=== PATIENT | female | born 1935 | race Asian ===

== ENCOUNTER 2017-08-26 10:28 | Day surgery (SDC) | payer OTHER ==
[~2017-08-26] VITALS: Ht 147.3 cm; Wt 69.1 kg
[~2017-08-26 10:28] MED LIST: ASPI-1182 PO; DICLOFENAC SODIUM 0.1% 2.5 ML OPHTHALMIC SOLUTION OS ONE; LISI-661 PO; MOXIFLOXACIN HCL 0.5% 3 ML OPHTHALMIC SOLUTION OS ONE; RINGERS SOLUTION,LACTATED 500 ML IV ONE; SIMV-259 PO
[2017-08-26] MEDS ORDERED: HYALURONATE SODIUM 12 MG/ML 0.8 ML SYRINGE IO ONE (10:29)
[2017-08-26] MEDS ORDERED: 0.9% SODIUM CHLORIDE 10 ML VIAL IVP ONE (10:29)
[2017-08-26] MEDS ORDERED: LIDOCAINE HCL/PF 1% 2 ML VIAL IM ONE (10:29)
[2017-08-26] MEDS ORDERED: MIDAZOLAM HCL 2 MG/2 ML VIAL IVP ONE (10:29)
[2017-08-26] MEDS ORDERED: TETRACAINE HCL VISCOUS 0.5% 5 ML OPHTHALMIC SOLUTION OS ONE (10:29)
[2017-08-26] MEDS ORDERED: HYALURONATE SOD/CHONDROITIN SOD 0.5 ML VIAL IO ONE (10:29)
[2017-08-26] MEDS ORDERED: DEXAMETHASONE SOD PHOS 4 MG/ML VIAL IVP ONE (10:29)
[2017-08-26] MEDS ORDERED: POVIDONE-IODINE 10% 15 ML SOLUTION UD TP ONE (10:29)
[2017-08-26] MEDS ORDERED: FentaNYL CITRATE-PF 100 MCG/2 ML VIAL IVP ONE (10:29)
[2017-08-26] MEDS ORDERED: BALANCED SALT 15 ML OPHTHALMIC IRRIG.SOLN OS ONE (10:29)
[2017-08-26] MEDS ORDERED: MOXIFLOXACIN HCL 0.5% 3 ML OPHTHALMIC SOLUTION ONE (10:35)
[2017-08-26] MEDS ORDERED: RINGERS SOLUTION,LACTATED 500 ML IV ONE (10:35)
[2017-08-26] MEDS ORDERED: DICLOFENAC SODIUM 0.1% 2.5 ML OPHTHALMIC SOLUTION ONE (10:35)
[2017-08-26] MEDS ORDERED: PHENYLEPHRINE HCL 2.5% 2 ML OPHTHALMIC SOLUTION ONE (10:35)
[2017-08-26] MEDS ORDERED: TROPICAMIDE 1% 2 ML OPHTHALMIC SOLUTION ONE (10:35)
[2017-08-26] MEDS: PHENYLEPHRINE HCL 2.5% 2 ML OPHTHALMIC SOLUTION OS SCH ×2 (11:17→11:27)
[2017-08-26] MEDS: TROPICAMIDE 1% 2 ML OPHTHALMIC SOLUTION OS SCH ×2 (11:18→11:27)
== END 2017-08-26 14:55 | disposition home or self-care (01) ==
LOC: SURGERY 10:28
PROVIDERS: ATTEND Specialist
DX: H25.012 Cortical age-related cataract, left eye (principal); I10 Essential (primary) hypertension; E78.00 Pure hypercholesterolemia, unspecified; M19.90 Unspecified osteoarthritis, unspecified site; Z90.89 Acquired absence of other organs; Z79.82 Long term (current) use of aspirin; Z98.41 Cataract extraction status, right eye; Z79.899 Other long term (current) drug therapy; Z98.890 Other specified postprocedural states
CPT/HCPCS: 66984; 93005; C1780; J1100; J2250; J3010; J3490 ×2; J7120